=== PATIENT | female | born 1940 | race Caucasian/White ===

== ENCOUNTER 2017-07-18 13:58 | Inpatient (IN) | payer OTHER ==
[~2017-07-18] VITALS: Ht 162.6 cm; Wt 79.4 kg
[~2017-07-18 13:58] MED LIST: CYMBALTA60 MG PO; FORTAMET1000 MG PO; HUMOLOG; HUMUL; ILEVRO1.7 ML OP; LASIX20 MG PO; LOSARTAN-HCTZ1 EACH; METFORMIN HCL500 MG PO; NAMENDA10 MG PO; NORVA PO; RELAFEN PO; SIMBRINZA 1%-0.28 ML OP; SYNTHROID50 MCG PO; ZOCOR20 MG PO
[2017-07-22] MEDS ORDERED: PERCOCET 5-3251 EACH PO (09:05)
[2017-07-22] MEDS ORDERED: INTEGRA PLUS C1 EACH PO (09:05)
[2017-07-22] MEDS ORDERED: CIPRO500 MG PO (09:05)
[2017-07-22] MEDS ORDERED: CEFADROXIL500 MG PO (09:05)
== END 2017-07-22 10:06 | disposition home or self-care (01) | DRG 483 ==
LOC: O/R 07-21 06:59 → SURH 07-21 09:15
PROVIDERS: Orthopaedic Surgery Sports Medicine
PROC: 0RRK00Z Replacement of Left Shoulder Joint with Reverse Ball and Socket Synthetic Substitute, Open Approach (ICD-10-PCS; principal; 2017-07-21 09:15)
DX: S42.92XA Fracture of left shoulder girdle, part unspecified, initial encounter for closed fracture (principal); M75.122 Complete rotator cuff tear or rupture of left shoulder, not specified as traumatic; X58.XXXA Exposure to other specified factors, initial encounter; Y93.89 Activity, other specified; Y92.89 Other specified places as the place of occurrence of the external cause; Y99.8 Other external cause status